=== PATIENT | male | born 1975 | race Hispanic/Latino ===

== ENCOUNTER 2025-03-10 10:46 | Emergency (ER) | payer OTHER, SELFPAY ==
[2025-03-10 10:50] VITALS: BP 141/84
--- NOTE | 2025-03-10 11:39 | ED.GENMED ---
History of Present Illness
General
Chief Complaint: Breathing Problem
Time Seen by Provider: 03/10/25 11:28
History of Present Illness
History of Present Illness:
50-year-old male with history of hypertension and hyperlipidemia presents to the emergency department for evaluation of bilateral thoracic back pain that is pleuritic in nature and ongoing for the past month. States that he is able to exert himself
without difficulty but whenever he takes a full deep inspiration he develops pain. Also has a mild dry cough. No fever, chills, sweats, nausea, vomiting, or diarrhea. No anterior chest pain. No leg swelling. Non-smoker.
Past History
Past History
ED Past Medical History: HTN, Hypercholesterolemia and Other (Back low back pain)
ED Past Surgical History: Orthopedic (lumbar surgery) and Other (Umbilical hernia repair)
Social History
Tobacco: Non-smoker
Alcohol: None
Drug: None
Personal:
Living: with family
Employment: Not employed
Family History
Family History: Diabetes and Hypertension
Review of Systems
Review of Systems
Allergies reviewed?: Yes
All Other Systems: ROS reviewed and negative except as documented in HPI and ROS
Phy Exam
Physical Exam
Physical Exam:
GEN: Well appearing, NAD, WDWN
HEENT: Oral mucosa moist, no scleral icterus
Cardiac: Regular rate and rhythm, no murmurs
Lung: No respiratory distress, no tachypnea, lungs clear to auscultation, no reproducible thoracic back pain
MSK: No gross deformity or injuries
Skin: Good color, no pallor or jaundice, no rashes
Neuro: AO x3, moves all extremities freely
Psych: Calm, cooperative
Scores
Heart Failure Risk
Heart Failure Risk Score: Not Applicable
Course
Orders/Labs/Results
Orders:
Orders
03/10/25 10:53
CR Chest - 2 Views Urgent
Comment:
Reason For Exam: cough
03/10/25 11:39
Electrocardiogram (*1) Urgent
Reason for Study: Shortness of Breath
EKG- Treatment ONCE
03/10/25 12:03
Complete Blood Count/No Diff Urgent
Comprehensive Metabolic Panel Urgent
D-Dimer Urgent
Abnormal Lab Results
03/10/25
12:03
Glucose 113 H mg/dl
(70-99)
03/10/25 12:03
03/10/25 12:03
Vital Signs
Initial and Last Documented VS:
Initial Vital Signs
Temp Pulse Resp BP Pulse Ox
98.4 F 68 16 141/84 98
03/10/25 10:50 03/10/25 10:50 03/10/25 10:50 03/10/25 10:50 03/10/25 10:50
Last Documented Vital Signs
Temp Pulse Resp BP Pulse Ox
98 F 59 16 144/87 98
03/10/25 13:30 03/10/25 13:30 03/10/25 13:30 03/10/25 13:30 03/10/25 13:30
MDM/Problems Addressed
MDM/Problems Addressed:
Patient's workup is reassuring, negative D-dimer rules out PE and a low risk patient. EKG is abnormal but appears to be comparable to prior tracings and he has no anterior chest pain or exertional chest pain worrisome for acute coronary syndrome.
Chest x-ray is clear with no evidence for pleural effusions or infectious etiology. May be an inflammatory pleurisy however he had no recent viral prodrome. Will recommend NSAIDs and outpatient primary care follow-up
Comment
Comment:
EKG independently interpreted by me shows normal sinus rhythm with abnormal ST segments in V3 through V5 with T wave inversions in V3 through V6. This is comparable to previous EKG from May 2015
Chest x-ray independently interpreted by me is negative for acute disease
*Pulse Oximetry
SaO2: 98
Oxygen Mode of Delivery: Room air
Patient hypoxic: no
*Critical Care Note
Total Time (30-74mins, 75-104mins- exclusive of procedures): Not Applicable
ED Attending Note
-
Portions of this chart may have been created with voice recognition software.� Occasional wrong word or��sound alike� substitutions may have occurred due to the inherent limitations of voice recognition software.
Discharge Plan
Departure
Patient Disposition: Home (Routine Discharge)
Date of Disposition: 03/10/25
Time of Disposition: 13:30
Patient with high blood pressure during this ER visit?: No
Discharge Problem:
Pleuritic pain
Instructions: Pleurisy
Prescriptions:
New
diclofenac sodium 75 mg tablet,delayed release (DR/EC)
75 mg PO BID Qty: 20 0RF
No Action
hydrocodone-acetaminophen 1 EACH tablet
1 - 2 tab PO Q6HPRN PRN (Reason: severe pain) Qty: 8 0RF
metronidazole 500 MG tablet
500 mg PO TID
ondansetron 4 MG tablet,disintegrating
4 mg PO TIDPRN PRN (Reason: nausea)
diclofenac potassium [Zipsor] 25 MG capsule
25 mg PO DAILY
prochlorperazine maleate 10 MG tablet
10 mg PO Q6HPRN PRN (Reason: nausea) Qty: 10 0RF
Referrals:
Laura Desouza DO [Family Provider, Family Practice]
Activity Restrictions/Additional Instructions:
Follow up with your primary doctor if symptoms are not improved by medication
Interventions
Interventions:
*Risk Screen - Suicide Last Done: 03/10/25 12:05
*General Assessment Last Done: 03/10/25 12:05
*Neglect/Abuse Screening Last Done: 03/10/25 12:05
*ED COVID-19 Vaccine History Last Done: 03/10/25 12:05
*ED Influenza Vaccine History Last Done: 03/10/25 12:05
*Nursing Disposition Last Done: 03/10/25 13:52
ED- Cardiac Assessment Last Done: 03/10/25 12:00
ED- Pulmonary Assessment Last Done: 03/10/25 12:00
Discharge Date and Time
Discharge Date/Time: 03/10/25 13:52
Print Language: WOLOF
[2025-03-10 12:00] VITALS: BP 145/102
[2025-03-10 12:03] VITALS: BMI 38.1
[2025-03-10 12:27] LABS: Hematocrit 45.2 % (39.0-52.0); Hemoglobin 15.1 g/dL (13.0-18.0); Mean Corp Hgb Conc. 33.4 g/dL (33.0-37.0); Mean Corpuscular Volume 92.8 fL (80.0-94.0); Platelet Count 222 10^3/uL (130-400); Red Cell Dist. Width 13.5 % (11.5-14.5)
[2025-03-10 13:06] LABS: D-Dimer < 0.27 ug/mlFEU (0.00-0.50)
[2025-03-10 13:16] LABS: ALT (SGPT) 27 U/L (0-50); AST (SGOT) 20 U/L (17-59); Albumin 3.9 g/dl (3.5-5.0); Alkaline Phosphatase 70 U/L (38-126); Blood Urea Nitrogen 13 mg/dl (9-20); Calcium 8.8 mg/dl (8.4-10.2); Carbon Dioxide 26 mmol/L (22-30); Chloride 105 mmol/L (98-107); Estimated Creatinine Clearance > 125 ml/min; Glucose 113 mg/dl (70-99); Potassium 4.1 mmol/L (3.5-5.1); Sodium 135 mmol/L (135-145); Total Protein 6.9 g/dl (6.3-8.2); eGFR > 60.00
[2025-03-10 13:30] VITALS: BP 144/87
== END 2025-03-10 13:52 | disposition home or self-care (01) ==
LOC: EMR 10:46
PROVIDERS: Physician Assistant; EMERGENCY PHYSICIAN Emergency Medicine; FAMILY PHYSICIAN Family Medicine
DX: R07.81 Pleurodynia (principal); M54.6 Pain in thoracic spine; I10 Essential (primary) hypertension; E78.00 Pure hypercholesterolemia, unspecified
CPT/HCPCS: 99285; 71046; 80053; 85027; 85379; 93005